=== PATIENT | male | born 1940 | race Caucasian/White ===

== ENCOUNTER 2018-09-07 10:56 | Inpatient (IN) ==
--- NOTE | 2018-09-07 11:05 | ERNOTE ---
Neuro HPI ER Record Date of Service: 09/07/18 Presenting Symptoms: weakness, difficulty walking Time Seen by Provider: 09/07/18 10:56 Source: patient Exam Limitations: no limitations Allergies/Adverse Reactions: Allergies Allergy/AdvReac Type Severity Reaction Status Date / Time No Known Drug Allergies Allergy Verified 09/07/18 13:09 Home Medications: HOME MEDICATIONS omeprazole 40 mg capsule,delayed release 40 mg PO DAILY #90 cap 06/03/18 [Last Taken Unknown] simvastatin 40 mg tablet 40 mg PO HS #90 tab 06/03/18 [Last Taken Unknown] montelukast 10 mg tablet 10 mg PO DAILY #90 tab 08/31/18 [Last Taken Unknown] Albuterol Sulfate [Ventolin HFA] 2 puff INHALATION Q6H 09/07/18 [Last Taken Unknown] Diclofenac Sodium [Voltaren] 50 mg PO DAILY PRN 09/07/18 [Last Taken Unknown] Tamsulosin HCl [Flomax] 0.4 mg PO 1800 09/07/18 [Last Taken Unknown] - Pain Score Pain Score #1 Pain Score: 3 - History of Present Illness Narrative: The patient is a 77 year old male who presents for left sided weakness which has been present for 2 days. There are associated symptoms of left medial wrist burn and fall. The patient reports pain to left medial wrist, 3/10. There are no alleviating factors. There are no aggravating factors. Previous treatments have included: none. The past medical history includes: arthritis, COPD, CHF, GERD, HTN and HLD. The social history is positive for current tobacco use. The patient has had no ill contacts. Patient reports fall 2 days ago due to left leg weakness. Patient states that he was also having weakness to left arm which he attributed to previous neck and arm dysfunction. Patient reports during cooking last night left arm kept falling on skillet due to inability to hold it up causing burn to medial wrist. Patient reports last tetanus 2 years ago. Review of Systems - Review of Systems Constitutional: Present: weakness. Absent: recent illness, fever, fatigue EYE: Present: no symptoms reported. Absent: vision changes ENT: Present: no symptoms reported. Absent: ear pain, nasal drainage, sore throat Respiratory: Present: cough. Absent: shortness of breath Cardiology: Present: no symptoms reported. Absent: chest pain Gastrointestinal/Abdominal: Present: no symptoms reported. Absent: vomiting, diarrhea, abdominal pain Genitourinary: Present: no symptoms reported. Absent: dysuria, decreased urinary output Musculoskeletal: Absent: back pain, joint pain Skin: Present: other - burn Neurological: Present: weakness, numbness All Other Systems: All systems neg except as marked Medical History (Updated 01/26/18 @ 09:16 by BARTOLO Fairchild) Hypertension (Chronic) Onset Date: Unknown Hyperlipidemia (Chronic) Onset Date: Unknown Glaucoma (Acute) Onset Date: Unknown GERD (gastroesophageal reflux disease) (Chronic) Onset Date: Unknown CHF (congestive heart failure) (Chronic) Onset Date: Unknown COPD (chronic obstructive pulmonary disease) (Chronic) Onset Date: Unknown Arthritis (Chronic) Onset Date: Unknown Surgical History: Surgical History (Updated 10/07/17 @ 10:22 by Latonia Prakash RN) Abnormal colonoscopy Onset Date: ~2017 1997-Polyps 0229-[id number]-[id number] adenoma x3. Recheck in 3 months 7475-Bocmv-lysnjqu adenoma. Recheck in 5 years Amputation finger Onset Date: Unknown H/O tooth extraction Onset Date: Unknown History of esophagogastroduodenoscopy (EGD) Onset Date: Unknown 2008-Dr Painting-Esophagitis 0407-Vqbri-Mvxdhqy negative, marked irritation Hx of cataract surgery Onset Date: ~2012 bilateral S/P epidural steroid injection Onset Date: ~2008 C5-6 Family History: Family History (Updated 10/07/17 @ 10:24 by Latonia Prakash RN) Brother CVA (cerebral vascular accident) Brother Lung cancer Brother Brain cancer Father Myocardial infarction Mother Emphysema lung Diabetes Sister Diabetes Sister Heart disease Social History: Preferred Language Slovak Smoking Status Current some day smoker Abuse History No History of abuse Psych History No pertinent hx (Last Updated 07/27/18 @ 11:27 by BARTOLO Fairchild) No Social History Section defined Physical Exam - Physical Exam General Appearance: Present: wd/wn, alert, mild distress Head Exam: Present: normal inspection, no evidence of injury Eye Exam: Normal inspection: bilateral, PERRL: bilateral, EOMI: bilateral Neck: Present: normal inspection, nontender, full range of motion Respiratory: Present: no respiratory distress, normal breath sounds, no accessory muscle use, lungs clear Cardiovascular/Chest: Present: regular rate, rhythm, no murmur Gastrointestinal/Abdominal: Present: normal bowel sounds, nontender, nondistended, soft, no organomegaly Neurological Exam: Present: alert, oriented, normal mood/affect, facial droop - left, motor weakness - left arm and left leg drift Skin Exam: Present: normal color, warm/dry Initial Stroke Assessment - NIH Stroke Scale Level of Consciousness: Alert LOC Questions (Year and Age): Answers both correctly LOC Commands (open/close eyes/fist): Performs both correctly Lateral Gaze Paresis: None Visual Field Loss: No visual loss Facial Palsy: Minor paralysis Right Arm Motor (10 sec hold): No drift Left Arm Motor (10 sec hold): Drift, effort made Right Leg Motor (5 sec hold): No drift Left Leg Motor (5 sec hold): Drift, effort made Limb Ataxia (finger/nose heel/rangel): Present in 1 limb If present, ataxia in:: Left arm, Left leg Sensory Loss (pinprick arms/legs/face): Mild, aware yet dulled Language Aphasia (description/naming/reading): No aphasia; normal Dysarthria (speech clarity): Normal articulation Neglect Inattention (visual/tactile/auditory/spatial/person): No neglect Initial Stroke Scale Score:: 7 Stroke Inclusion/Exclusion Cri - A Inclusion (Must answer Yes to meet): Symptoms for 2 days. - Inclusion Questions: Yes Onset of symptoms <3 1/2 hours of admission to ETC: No Progress - Date and Time Seen: Date and Time: 09/07/18 14:14 Case was discussed with for admission, requests full dose aspirin be given prior to admission. - Results and Orders Patient's Lab Results:: I have reviewed the patient's lab results. - Vital Signs Patient's Vital Signs:: I have reviewed the patient's vital signs. - EKG EKG #1 EKG: NSR, RBBB, changed from EKG read: Reviewed by me - X-Ray X-Ray #1 X-Ray: chest Interpretation: Reviewed by me - CT/Ultrasound CT/Ultrasound Narrative: IMPRESSION: 1. SMALL FOCAL AREA OF LOW DENSITY ATTENUATION WITHIN THE SUPERIOR ANTERIOR TO MID RIGHT PARIETAL LOBE, CONCERNING FOR A LATE ACUTE CORTICAL INFARCTION. 2. NO EVIDENCE FOR ACUTE HEMORRHAGE OR MASS EFFECT. 3. AGE-RELATED ATROPHY. Electronically signed by Db Klein M.D.. Departure Clinical Impression: CVA (cerebral vascular accident) Qualifiers: CVA mechanism: unspecified Qualified Code(s): I63.9 - Cerebral infarction, unspecified - Departure Disposition: Still a patient Condition: Fair
[2018-09-07 11:13] LABS: Hematocrit 44.5 % (42.0-52.0); Hemoglobin 14.8 gm/dL (13.5-18.0); Mean Cell Volume 90.6 fl (78-100); Mean Corpuscular Hemoglobin 30.1 pg (27-31); Mean Corpuscular Hgb Conc 33.3 g/dl (32-36); Mean Platelet Volume 9.8 fl (8-11.3); Neutrophil # 6.6 K/mm3 (1.3-6.0); Neutrophil % 63.4 % (42-75.0); Platelet Count 317 K/mm3 (150-450); Red Blood Count 4.91 M/mm3 (4.7-6.0); Red Cell Distribution Width 14.8 % (11.5-14.0); White Blood Count 10.5 K/mm3 (4.0-10.5)
[2018-09-07 11:23] LABS: INR 1.04 INR (0.92-1.08); Partial Thrombolplastin Time 24.5 Seconds (24-32); Prothrombin Time (Patient) 10.3 Seconds (9.1-10.7)
[2018-09-07 11:28] LABS: Albumin * 3.2 gm/dl (3.4-5.0); Anion Gap 18.3 mmol/L (6.8-13.8); BUN/Creatinine Ratio 14.3 (9.0-21.6); Bilirubin, Total 0.4 mg/dL (0.0-1.1); Calcium * 8.7 mg/dL (7.9-10.9); Carbon Dioxide 20.7 mmol/L (24-32.6); Total Protein 7.1 gm/dL (6.2-8.2)
[2018-09-07] MEDS ORDERED: ASPIRIN 81 MG TAB.CHEW PO ONE (12:28)
[2018-09-07] MEDS ORDERED: ACETAMINOPHEN 325 MG TABLET PO PRN (18:10)
[2018-09-07] MEDS ORDERED: DICLOFENAC SODIUM 50 MG TABLET.DR PO PRN (18:12)
[2018-09-07] MEDS ORDERED: ENOXAPARIN SODIUM 40 MG/0.4 ML SYRG SC SCH (18:15)
--- NOTE | 2018-09-07 18:29 | HP ---
Chief Complaint - Chief Complaint Date of Service: 09/07/18 Time of Service: 18:17 Chief Complaint: I have got left-sided weakness in my leg feels numb History of Present Illness: 77-year-old male with past medical history of COPD, nicotine dependence, cigar smoker, osteoarthritis, CHF, GERD, hypertension, hyperlipidemia, was evaluated in our ER for left-sided weakness of 2 weeks duration. Patient reports that 2 weeks ago he noticed that his left arm became weak and he was unable to sustain it or lifted. He reports that the left arm would fall to the side when he tried to do minimal activities or movements. 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 Patient also sustained a burn injury to his left wrist while attempting to pry food with a frying gotti, he says that his left arm would fall over the frying gotti even when he tried to keep it elevated. He says shortly after that he developed numbness in his left upper extremity and left lower extremity and loss sensation in these areas. Patient's family tried to convince him to go to the ER several days ago for his symptoms but he refused, he finally accepted last night when he noticed that he burned his wrist due to the inability of sustaining his arm elevated. Patient denies having these symptoms before or ever being treated for neurological deficits. He currently takes statins every evening but is not currently on aspirin. Medical History (Updated 09/07/18 @ 18:29 by Flores Hernandez MD) Hypertension (Chronic) Onset Date: Unknown Hyperlipidemia (Chronic) Onset Date: Unknown Glaucoma (Acute) Onset Date: Unknown GERD (gastroesophageal reflux disease) (Chronic) Onset Date: Unknown CHF (congestive heart failure) (Chronic) Onset Date: Unknown COPD (chronic obstructive pulmonary disease) (Chronic) Onset Date: Unknown Arthritis (Chronic) Onset Date: Unknown Surgical History: Surgical History (Updated 09/07/18 @ 18:29 by Flores Hernandez MD) Abnormal colonoscopy Onset Date: ~2017 1997-Polyps 0199-Bihcn-womgkue adenoma x3. Recheck in 3 months 4171-Qfkls-hbpvvhy adenoma. Recheck in 5 years Amputation finger Onset Date: Unknown H/O tooth extraction Onset Date: Unknown History of esophagogastroduodenoscopy (EGD) Onset Date: Unknown 2008-Dr Painting-Esophagitis 8939-Jgfpp-Ekkzeuc negative, marked irritation Hx of cataract surgery Onset Date: ~2012 bilateral S/P epidural steroid injection Onset Date: ~2008 C5-6 Family History: Family History (Updated 10/07/17 @ 10:24 by Latonia Prakash RN) Brother CVA (cerebral vascular accident) Brother Lung cancer Brother Brain cancer Father Myocardial infarction Mother Diabetes Emphysema lung Sister Diabetes Sister Heart disease Social History: Patient Lives/Resources Home Utilized Preferred Language South African Smoking Status Current some day smoker Have you smoked in the past 12 Yes months Do you dip or chew tobacco No Abuse History No History of abuse Psych History No pertinent hx Alcohol Use occasionally Drug Use none (Last Updated 07/27/18 @ 11:27 by BARTOLO Fairchild) No Social History Section defined Peds Patient Hx - Developmental: No Pertinent Hx Peds Patient Hx - Medical: No Pertinent Hx Peds Patient Hx - Cardiac/Respiratory: No Pertinent Hx Peds Patient Hx - Surgical: No Surgical History Patient History - Cancer: No Hx of Cancer Review Of Systems (GEN) - Review of Systems Generalized/Overall Review: Present: No Symptoms Reported EENTM: Present: No Symptoms Reported Respiratory: Present: No Symptoms Reported Cardiac: Present: No Symptoms Reported Abdominal: Present: No Symptoms Reported Genitourinary: Present: No Symptoms Reported Musculoskeletal: Present: No Symptoms Reported Neurological: Present: Numbness, Parasthesia, Weakness, Other - Left-sided hemiparesis and paresthesia of upper and lower left extremities. Left facial droop. Skin: Present: No Symptoms Reported Endocrine: Present: No Symptoms Reported Immunizations: IMMUNIZATION HX Immunizations Up to Date Yes History of Influenza Vaccine Yes Hx Pneumococcal Vaccination Yes Allergies/Adverse Reactions: Allergies Allergy/AdvReac Type Severity Reaction Status Date / Time No Known Drug Allergies Allergy Verified 09/07/18 13:09 Home Medications: HOME MEDICATIONS omeprazole 40 mg capsule,delayed release 40 mg PO DAILY #90 cap 06/03/18 [Last Taken Unknown] simvastatin 40 mg tablet 40 mg PO HS #90 tab 06/03/18 [Last Taken Unknown] montelukast 10 mg tablet 10 mg PO DAILY #90 tab 08/31/18 [Last Taken Unknown] Albuterol Sulfate [Ventolin HFA] 2 puff INHALATION Q6H 09/07/18 [Last Taken Unknown] Diclofenac Sodium [Voltaren] 50 mg PO DAILY PRN 09/07/18 [Last Taken Unknown] Tamsulosin HCl [Flomax] 0.4 mg PO 1800 09/07/18 [Last Taken Unknown] Exam - Exam Vital Signs: Vital Signs - Last Taken Temp 36.1 C 09/07/18 14:35 Pulse 73 09/07/18 14:35 Resp 16 09/07/18 14:35 BP 173/66 H 09/07/18 14:35 Pulse Ox 97 09/07/18 14:35 Constitutional: Present: Alert, Oriented x3, Cooperative, Well developed, Well nourished, No distress, Elderly ENT Exam: Present: normal ENT inspection, hearing grossly normal, pharynx normal, TMs normal Eye Exam: bilateral eye: normal inspection, PERRL, EOMI Neck: Present: non-tender, full range of motion, supple, normal inspection, trachea midline Back Exam: Present: normal inspection, no CVA tenderness, no vertebral tenderness Breasts: Present: Exam deferred Respiratory: Present: chest non-tender, no respiratory distress, no accessory muscle use, decreased breath sounds, wheezing - Scattered inspiratory wheezes with coarse breath sounds Cardiovascular/Chest: Present: normal peripheral pulses, regular rate, rhythm, no chest tenderness, no edema, no gallop, no JVD, no murmur, no rub Peripheral Pulses: carotid (R): 3+, carotid (L): 3+, femoral (R): 3+, femoral (L): 3+, dorsalis-pedis (R): 3+, dorsalis-pedis (L): 3+ Abdomen: Present: Normal bowel sounds, soft, nontender, nondistended, no rebound tenderness, no hepatospenomegaly, no masses, obese /Rectal: Present: Exam deferred Extremity: Present: non-tender, no pedal edema, no calf tenderness, normal capillary refill, other - Small linear burn on left wrist Skin Exam: Present: normal color, warm/dry, no cyanosis Lymphatic: Present: no adenopathy Neurologic: Present: normal cerebellar test, alert, normal mood/affect, oriented x 3, abnormal lean manufacturing engineer II-XII, abnormal gait, facial droop, motor weakness, sensory deficit, other - Left hemiparesis with paresthesia of left upper and lower extremity and left facial droop Appearance: Present: appropriate appearance, appropriate insight, neat, no memory impairment Eye contact: Present: cooperative, good eye contact, normal speech Thoughts: Present: normal thought pattern, no apparent hallucination Diagnostic Studies: Abnormal Lab Results 09/07/18 09/07/18 09/07/18 Range/Units 11:05 11:05 11:05 RDW 14.8 H (11.5-14.0) % Eosinophils % 5.5 H (0.0-3.0) % Neutrophils # 6.6 H (1.3-6.0) K/mm3 ESR 14 H (0-10) mm/hr Carbon Dioxide 20.7 L (24-32.6) mmol/L Anion Gap 18.3 H (6.8-13.8) mmol/L Creatinine 1.54 H (0.4-1.4) mg/dL Est GFR (Non-Af Amer) 47 L (60-130) mL/min ALT 18 L (19-67) U/L Albumin 3.2 L (3.4-5.0) gm/dl Laboratory Results WBC 10.5 K/mm3 (4.0-10.5) 09/07/18 11:05 RBC 4.91 M/mm3 (4.7-6.0) 09/07/18 11:05 Hgb 14.8 gm/dL (13.5-18.0) 09/07/18 11:05 Hct 44.5 % (42.0-52.0) 09/07/18 11:05 MCV 90.6 fl (78-100) 09/07/18 11:05 MCH 30.1 pg (27-31) 09/07/18 11:05 MCHC 33.3 g/dl (32-36) 09/07/18 11:05 RDW 14.8 % (11.5-14.0) H 09/07/18 11:05 Plt Count 317 K/mm3 (150-450) 09/07/18 11:05 MPV 9.8 fl (8-11.3) 09/07/18 11:05 Immature Gran % (Auto) 0.30 % (0.001-0.429) 09/07/18 11:05 Immature Gran # (Auto) 0.03 K/mm3 (0.000-0.0310) 09/07/18 11:05 63.4 % (42-75.0) 09/07/18 11:05 24.2 % (20-51) 09/07/18 11:05 6.1 % (0.0-9) 09/07/18 11:05 5.5 % (0.0-3.0) H 09/07/18 11:05 0.5 % (0.0-1.0) 09/07/18 11:05 Nucleated RBC % 0.0 k/mm3 (0-1) 09/07/18 11:05 6.6 K/mm3 (1.3-6.0) H 09/07/18 11:05 2.53 k/mm3 (1.5-3.5) 09/07/18 11:05 0.6 k/mm3 (0.0-1.0) 09/07/18 11:05 0.6 k/mm3 (0.0-0.7) 09/07/18 11:05 Absolute Basophils 0.1 k/mm3 (0.0-0.1) 09/07/18 11:05 ESR 14 mm/hr (0-10) H 09/07/18 11:05 PT 10.3 Seconds (9.1-10.7) 09/07/18 11:05 INR (Anticoag Therapy) 1.04 INR (0.92-1.08) 09/07/18 11:05 PTT ([place]) 24.5 Seconds (24-32) 09/07/18 11:05 Sodium 141 mmol/L (132-142) 09/07/18 11:05 141 mmol/L (130-142) 09/07/18 11:05 Potassium 4.0 mmol/L (3.4-4.6) 09/07/18 11:05 Chloride 106 mmol/L (97-106) 09/07/18 11:05 Carbon Dioxide 20.7 mmol/L (24-32.6) L 09/07/18 11:05 18.3 mmol/L (6.8-13.8) H 09/07/18 11:05 BUN 22 mg/dL (6-23) 09/07/18 11:05 1.54 mg/dL (0.4-1.4) H 09/07/18 11:05 Est GFR (Non-Af Amer) 47 mL/min (60-130) L 09/07/18 11:05 14.3 (9.0-21.6) 09/07/18 11:05 110 mg/dL (70-110) 09/07/18 11:05 Calcium 8.7 mg/dL (7.9-10.9) 09/07/18 11:05 Calcium Adj for Albumin 9.0 mg/dL (8.4-10.2) 09/07/18 11:05 0.4 mg/dL (0.0-1.1) 09/07/18 11:05 AST 12 U/L (0-48) 09/07/18 11:05 ALT 18 U/L (19-67) L 09/07/18 11:05 133 U/L (50-170) 09/07/18 11:05 7.1 gm/dL (6.2-8.2) 09/07/18 11:05 3.2 gm/dl (3.4-5.0) L 09/07/18 11:05 Assessment/Plan - Assessment/Plan (1) Ischemic stroke Problem: Acute (2) Left hemiparesis Problem: Acute (3) Paresthesia of arm Problem: Acute (4) Paresthesia of left leg Problem: Acute (5) Burn, wrist, first degree Problem: Acute (6) CVA (cerebral vascular accident) Problem: Acute Qualifiers: CVA mechanism: unspecified Qualified Code(s): I63.9 - Cerebral infarction, unspecified
[2018-09-07] MEDS: FAMOTIDINE 20 MG TABLET PO SCH (20:52)
[2018-09-07] MEDS: ALBUTEROL SULFATE 200 PUFF INHALER IH SCH (20:52)
[2018-09-07] MEDS: SIMVASTATIN 40 MG TABLET PO SCH (20:52)
[2018-09-07] MEDS: ENOXAPARIN SODIUM 40 MG/0.4 ML SYRG SC SCH (20:54)
[2018-09-08] MEDS: ALBUTEROL SULFATE 200 PUFF INHALER IH SCH ×4 (05:47→20:24)
[2018-09-08] MEDS ORDERED: MONTELUKAST SODIUM 10 MG TABLET PO SCH ×2 (09:00→21:00)
[2018-09-08] MEDS: ASPIRIN 81 MG TAB.CHEW PO SCH (09:28)
[2018-09-08] MEDS: DOCUSATE SODIUM 100 MG CAPSULE PO SCH (09:28)
--- NOTE | 2018-09-08 10:42 | PN ---
Subjective - Date and Time Seen Date: 09/08/18 Time: 10:33 Subjective Narrative: I still have left-sided weakness Objective - Review of Systems Generalized/Overall Review: Reports: Weakness EENTM: Reports: No Symptoms Reported Respiratory: Reports: No Symptoms Reported Cardiac: Reports: No Symptoms Reported Abdominal: Reports: No Symptoms Reported Genitourinary Symptoms: Reports: No Symptoms Reported Musculoskeletal Complaints: Reports: No Symptoms Reported Neurological: Reports: Numbness, Parasthesia, Weakness, Other - Left-sided weakness in upper and lower extremity Skin: Reports: No Symptoms Reported Endocrine: Reports: No Symptoms Reported - Vitals Vitals: Last Vital Signs Temp 36.1 C 09/08/18 10:27 Pulse 63 09/08/18 10:27 Resp 15 09/08/18 10:27 BP 152/79 H 09/08/18 10:27 Pulse Ox 94 09/08/18 10:27 - Abnormal Lab Findings Abnormal Lab Findings: Abnormal Lab Results 09/07/18 09/07/18 09/07/18 Range/Units 11:05 11:05 11:05 RDW 14.8 H (11.5-14.0) % Eosinophils % 5.5 H (0.0-3.0) % Neutrophils # 6.6 H (1.3-6.0) K/mm3 ESR 14 H (0-10) mm/hr Carbon Dioxide 20.7 L (24-32.6) mmol/L Anion Gap 18.3 H (6.8-13.8) mmol/L Creatinine 1.54 H (0.4-1.4) mg/dL Est GFR (Non-Af Amer) 47 L (60-130) mL/min ALT 18 L (19-67) U/L Albumin 3.2 L (3.4-5.0) gm/dl - Exam Constitutional: Present: Alert, Oriented x3, Cooperative, Well developed, Well nourished, No distress, Elderly ENT Exam: Present: normal ENT inspection, hearing grossly normal, pharynx normal, TMs normal Neck: Present: non-tender, full range of motion, supple, normal inspection, trachea midline Breasts: Present: Exam deferred Respiratory: Present: chest non-tender Cardiovascular/Chest: Present: normal peripheral pulses, regular rate, rhythm, no chest tenderness, no edema, no gallop, no JVD, no murmur Abdomen: Present: Normal bowel sounds, soft, nontender, nondistended, no rebound tenderness, no hepatospenomegaly, no masses /Rectal: Present: Exam deferred Extremity: Present: normal range of motion, non-tender, no pedal edema, no calf tenderness, normal capillary refill Skin Exam: Present: normal color, warm/dry, no cyanosis Lymphatic: Present: no adenopathy Neurologic: Present: alert, normal mood/affect, oriented x 3, motor weakness - Left-sided hemiparesis with paresthesia of the upper and lower extremity, sensory deficit Appearance: Present: appropriate appearance, appropriate insight, neat, no memory impairment Eye contact: Present: cooperative, good eye contact, normal speech Thoughts: Present: normal thought pattern, no apparent hallucination Assessment/Plan Plan Narrative: 77-year-old male admitted for acute ischemic stroke with left-sided hemiparesis and paresthesia was evaluated at bedside and was found to be afebrile and in no acute distress. Patient continues to demonstrate weakness in his left upper and lower extremity however he is able to raise his upper extremity at the elbow now. Physical therapy and Occupational Therapy were consulted and started therapy sessions with the patient this morning. Patient was taken out of bed and was ambulated with a walker he tolerated the session without any adverse events or complaints. Brain MRI results were released this morning and revealed that the injury most likely is subacute in nature primarily in the right parietal lobe. Hemorrhage was ruled out. Discharge planning is underway, the plan is to discharge patient to inpatient rehab at [facility]. We are currently working on obtaining a bed for the patient. - Problems/Diagnosis (1) Ischemic stroke Problem: Acute (2) Left hemiparesis Problem: Acute (3) Paresthesia of arm Problem: Acute (4) Paresthesia of left leg Problem: Acute (5) Burn, wrist, first degree Problem: Acute (6) CVA (cerebral vascular accident) Problem: Acute Qualifiers: CVA mechanism: unspecified Qualified Code(s): I63.9 - Cerebral infarction, unspecified
[2018-09-08] MEDS: LOSARTAN POTASSIUM 50 MG TABLET PO SCH (15:30)
[2018-09-08] MEDS ORDERED: TAMSULOSIN HCL 0.4 MG CAP.SR.24H PO SCH (18:00)
[2018-09-08] MEDS: ENOXAPARIN SODIUM 40 MG/0.4 ML SYRG SC SCH ×2 (20:24→22:51)
[2018-09-08] MEDS: SIMVASTATIN 40 MG TABLET PO SCH (20:25)
[2018-09-08] MEDS: FAMOTIDINE 20 MG TABLET PO SCH (20:25)
[2018-09-09] MEDS: ALBUTEROL SULFATE 200 PUFF INHALER IH SCH ×2 (00:37→06:57)
[2018-09-09] MEDS: DOCUSATE SODIUM 100 MG CAPSULE PO SCH (08:16)
[2018-09-09] MEDS: LOSARTAN POTASSIUM 50 MG TABLET PO SCH (08:16)
[2018-09-09] MEDS: ASPIRIN 81 MG TAB.CHEW PO SCH (08:16)
--- NOTE | 2018-09-09 10:48 | DS ---
(1) Ischemic stroke Problem: Acute (2) Left hemiparesis Problem: Acute (3) Paresthesia of arm Problem: Acute (4) Paresthesia of left leg Problem: Acute (5) Burn, wrist, first degree Problem: Acute (6) CVA (cerebral vascular accident) Problem: Acute Qualifiers: CVA mechanism: unspecified Qualified Code(s): I63.9 - Cerebral infarction, unspecified Description of Stay: 77 year-old male admitted to our institution for a right subacute ischemic CVA was evaluated at bedside and was found to be afebrile and in no acute distress. 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 Given these findings Dr. Muhammad which is a neurologist at [facility] was presented the case and he accepted the patient and instructed us to discharge patient to the rehab facility over at [place]. He plans to evaluate the patient once he arrives to the rehab center. Patient was informed of the carotid Doppler results and was evaluated. He has almost complete resolution of his left hemiparesis, he was not able to lift his left arm past his elbow when he arrived but is able to lifted almost above his head or pass his shoulder this morning. However he still has a minor drift and it is the same with his left lower extremity. Sensation is also returning on his left side. vitals have remained stable and there are no new neurological deficits. Therefore given his presentation decision to discharge patient with instructions to follow-up with his primary care doctor and to undergo rehab at [facility] was made. Will discharge patient on aspirin and statins. Procedures Performed: none Results and Findings: Lab Pending Results 09/07/18 11:05: WBC 10.5, RBC 4.91, Hgb 14.8, Hct 44.5, MCV 90.6, MCH 30.1, MCHC 33.3, RDW 14.8 H, Plt Count 317, MPV 9.8, Immature Gran % (Auto) 0.30, Immature Gran # (Auto) 0.03, Neutrophils % 63.4, Lymphocytes % 24.2, Monocytes % 6.1, Eosinophils % 5.5 H, Basophils % 0.5, Nucleated RBC % 0.0, Neutrophils # 6.6 H, Lymphocytes # 2.53, Monocytes # 0.6, Eosinophils # 0.6, Absolute Basophils 0.1 09/07/18 11:05: ESR 14 H 09/07/18 11:05: PT 10.3, INR (Anticoag Therapy) 1.04, PTT ([place]) 24.5 09/07/18 11:05: Sodium 141, Plasma Sodium 141, Potassium 4.0, Chloride 106, Carbon Dioxide 20.7 L, Anion Gap 18.3 H, BUN 22, Creatinine 1.54 H, Est GFR (Non-Af Amer) 47 L, BUN/Creatinine Ratio 14.3, Random Glucose 110, Calcium 8.7, Calcium Adj for Albumin 9.0, Total Bilirubin 0.4, AST 12, ALT 18 L, Alkaline Phosphatase 133, Total Protein 7.1, Albumin 3.2 L Discharge Location: [facility] Disposition: Inpatient Rehab Facility Condition: Stable Face to Face Encounter completed per CMS Guidelines: No Discharge Activity: Activity as tolerated Discharge Diet: Low salt, Low fat/chol Referrals: Isadora Rodriguez FNP [Primary Care Provider] - Additional Patient Instructions (free text): -Please make TCM appointment unless [facility] discharge. Thank you! Bree @ ext:[phone]. Prescriptions (Any new or edited meds): Aspirin [Aspirin EC] 325 mg PO DAILY #30 tablet. Complete Home Medications List: Complete Home Medication List: omeprazole 40 mg capsule,delayed release 40 mg PO DAILY #90 cap 06/03/18 simvastatin 40 mg tablet 40 mg PO HS #90 tab 06/03/18 montelukast 10 mg tablet 10 mg PO DAILY #90 tab 08/31/18 Albuterol Sulfate [Ventolin HFA] 2 puff INHALATION Q6H 09/07/18 Diclofenac Sodium [Voltaren] 50 mg PO DAILY PRN 09/07/18 Tamsulosin HCl [Flomax] 0.4 mg PO 1800 09/07/18 Aspirin [Aspirin EC] 325 mg PO DAILY #30 tablet. 09/09/18
[2018-09-09 11:28] VITALS: BP 148/61
== END 2018-09-09 12:30 | disposition short-term general hospital (02) | DRG 65 ==
LOC: ER 10:56 → MS 12:43
PROVIDERS: ADMIT Family Medicine; ATTEND Family Medicine
CPT/HCPCS: 36415; 70450; 70553; 71010; 71045; 80053; 85025; 85610; 85652; 85730; 93005; 93306; 93880; 97110; 97116; 97162; 97165; 97535; 99285; A9576